=== PATIENT | female | born 1940 | race Caucasian/White ===

== ENCOUNTER 2023-03-28 10:09 | Outpatient (CLI) | payer MEDICARE, BC, SELFPAY ==
--- NOTE | 2023-03-28 08:34 | W.ANESCHARGE ---
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
--- NOTE | 2023-03-28 11:52 | W.ANESCHARGE ---
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
== END 2023-03-28 10:10 | disposition home or self-care (01) ==
LOC: OP CLINIC 10:11
PROVIDERS: PCP Family Medicine; Visit Provider Internal Medicine Gastroenterology
DX: Z12.11 Encounter for screening for malignant neoplasm of colon (principal); K63.5 Polyp of colon; K64.8 Other hemorrhoids; Z86.010 Personal history of colon polyps
CPT/HCPCS: 45380; 811; 88305; 99100; J2704